=== PATIENT | female | born 1950 | race Two or more races ===

== ENCOUNTER → 2024-04-19 | Outpatient (CLI) | payer BC ==
[~2024-04-19] MED LIST: TRAM50TA2 PO
[2024-04-19 09:40] LABS: Urine Bacteria None Seen /hpf (None Seen)
[2024-04-19 09:51] LABS: Basophils # (auto) 0 10 ^3/uL (0-0.2); Basophils % (auto) 0.6 % (0.0-2.0); Eosinophils # (auto) 0.1 10 ^3/uL (0-0.8); Eosinophils % (auto) 1.1 % (0.0-7.0); Hematocrit 44.1 % (36.0-46.0); Hemoglobin 15.7 g/dL (12.2-16.2); Lymphocytes % (auto) 28.5 % (10.0-50.0); Mean Corpuscular Hemoglobin 32.4 pg (28.0-32.0); Mean Corpuscular Hgb Conc. 35.5 g/dL (32.0-36.0); Mean Corpuscular Volume 91.1 fL (80.0-100.0); Monocytes # (auto) 0.5 10 ^3/uL (0-1.3); Monocytes % (auto) 6.4 % (0.0-12.0); Neutrophils # (auto) 4.5 10 ^3/uL (1.6-8.6); Neutrophils % (auto) 63.4 % (37.0-80.0); Platelet Count (auto) 200 10^3/uL (140-450); Red Blood Cells 4.84 10^6/uL (4.0-5.20); Red Cell Distribution Width 13.2 % (11.8-14.3); White Blood Cell 7.1 10^3/uL (4.4-10.8)
[2024-04-19 09:56] LABS: Urine Blood Negative /uL (Negative); Urine Clarity Clear (Clear); Urine Color Light-Yellow (Yellow); Urine Protein, UAD Negative (Negative); Urine Specific Gravity 1.016 (1.001-1.035); Urine Urobilinogen Normal (Negative); Urine WBC 1 /hpf (0 - 5)
[2024-04-19 12:18] LABS: % Iron Saturation 44.9 % (15-50)
[2024-04-19 12:20] LABS: Alanine Aminotransferase 49 U/L (7-40); Albumin 4.2 g/dL (3.2-4.8); Alkaline Phosphatase 131 U/L (46-116); Anion Gap 5 (5-15); Aspartate Aminotransferase 35 U/L (13-40); BUN/Creatinine Ratio 7.7 (10.0-20.0); Bilirubin, Total 1.6 mg/dL (0.2-1.0); Blood Urea Nitrogen 7 mg/dL (9-23); Carbon Dioxide 30 mmol/L (20-31); Chloride 109 mmol/L (98-107); Cholesterol 165 mg/dL (< 200); Glucose 95 mg/dL (74-106); HDL Cholesterol 56 mg/dL (40-59); LDL Cholesterol 99 mg/dL (< 100); Potassium 3.8 mmol/L (3.5-5.1); Sodium 144 mmol/L (136-145); Total Protein 6.7 g/dL (5.7-8.2); Triglycerides 110 mg/dL (< 150)
[2024-04-19 12:24] LABS: Folate (Folic Acid) 12.99 ng/mL (>5.38)
[2024-04-19 12:56] LABS: Uric Acid 6.1 mg/dL (3.1-7.8)
== END | disposition home or self-care (01) ==
LOC: LAB 09:25
PROVIDERS: ATTEND Family Medicine
DX: I10 Essential (primary) hypertension (principal); E78.2 Mixed hyperlipidemia; Z00.00 Encounter for general adult medical examination without abnormal findings
CPT/HCPCS: 36415; 80053; 80061; 81001; 82306; 82607; 82746; 83036; 83540; 83550; 84403; 84443; 84550; 85025

== ENCOUNTER 2024-08-21 10:57 | Emergency (ER) | payer BC ==
[~2024-08-21] VITALS: Ht 162.6 cm; Wt 89.4 kg
--- NOTE | 2024-08-21 12:33 | ED.PDOC ---
History of Present Illness HPI Comments 74-year-old female that has a headache for 2 weeks. She supposedly had some form of a tumor in her brain but was referred to neuro any appointment has been canceled. She has been having issues getting into see the neurologist has to do with the referral she followed up with her primary care doctor who sent the referral was sent but it was never sent. Patient has no loss of vision no numbness no tingling. Patient states that she does have a headache it has been consistent for 2 weeks now she used to get very dizzy not as much. Denies any Falls. Chief Complaint: Headache Time Seen by MD: 12:30 Primary Care Provider: francisca Reviewed Notes: Nurses Notes, Medications, Allergies Allergies: Coded Allergies: NO KNOWN ALLERGIES (Unverified , 03/23/24) Home Meds Active Scripts Tramadol Hcl (Tramadol Hcl) 50 Mg Tab, 50 MG PO Q6HP PRN, #60 MG Prov:JOAQUIN CONNELL N.P. 08/01/13 Information Source: Patient Mode of Arrival: Ambulatory Past Medical History PAST MEDICAL HISTORY: Depression, HTN Past Medical History (Other): Pain to her Surgical History: Cholecystectomy, Hysterectomy, Tonsillectomy, Denies all surgeries [employer] History: No Pertinent [employer] History Social History Smoker: Non-Smoker Alcohol: Denies ETOH Use Drugs: Denies Drug Use Lives In: Home Neurological: reports: dizziness, headache All Other Systems: Reviewed and Negative Physical Exam General Appearance: No Apparent Distress HEENT: Normal ENT Inspection, PERRL/EOMI, Pharynx Normal, TMs Normal Neck: Non-Tender, Normal, Normal Inspection Respiratory: Lungs Clear Cardiovascular: Regular Rate/Rhythm Breast Exam: Deferred Gastrointestinal: Non Tender, Soft Genitalia: Deferred Pelvic: Deferred Rectal: Deferred Extremities: Normal inspection, Normal range of motion Neurologic: Alert, Headache, No Motor Deficits, Normal Mood, No Sensory Deficits Cerebellar Function: Normal Reflexes: NOT DONE Skin: Dry, Warm Lymphatic: No Adenopathy Was a procedure done? Was a procedure done?: No Differential Dx Considerations may include: Bleed versus migraine. X-Ray, Labs, Meds, VS Vital Signs Date Time Temp Pulse Resp B/P (MAP) Pulse Ox O2 Delivery O2 Flow Rate FiO2 08/21/24 11:15 97.7 91 19 152/89 (110) 97 X-Ray, Labs, Meds, VS Comment Patient seen examined by me. Patient has not been able to see the neurologist for some time secondary to cancellation of referrals. I will do a CT of her head as well as give her a pain shot once we get the imaging back.. Patient will be given a Toradol shot to help with pain. She needs to follow-up with the neurologist again further management and surveillance. Exception of the headache patient does not have any neurological symptoms at this time. Gait is Steady. CLINICAL INFORMATION: 74 years old, Female; headache. TECHNIQUE: Axial imaging was obtained through the brain without contrast. Coronal and sagittal reformatted images were obtained, reviewed, and stored. Images were reviewed in brain and bone windows. All CT scans at this medical facility are performed using dose modulation techniques as appropriate to a performed exam including the following: Automated exposure control was utilized; adjustment of the MA and/or KV according to patient size; and use of iterative reconstruction technique. CTDIvol = 60.28 mGy DLP = 1066.05 mGy-cm COMPARISON: None FINDINGS: There is no acute intracranial hemorrhage or extraaxial fluid collection. No midline shift. Focal calcification along the right side of the falx cerebri near the vertex measuring up to 0.9 cm in greatest dimension, abutting the right lateral aspect of the superior sagittal sinus. Scattered areas of hypoattenuation are seen in the periventricular and subcortical white matter, which are nonspecific but most likely sequelae of small vessel ischemic disease. The ventricles and sulci are within normal limits in size for age. Basal cisterns are patent. The calvarium is unremarkable. Paranasal sinuses and mastoid air cells are clear. IMPRESSION: 1. No CT evidence of acute intracranial abnormality. 2. Nonspecific calcification adjacent to the right side of the falx cerebri near the vertex. Differential considerations would include physiologic or dystrophic calcification. Calcified meningioma not excluded. Correlate with clinical findings. If clinically indicated, MRI without and with contrast could be o btained. ATED BY: MARSHALL HANNA DO DICTATED DATE/TIME: 08/21/24 1256 Time of 1ST Reevaluation: 13:11 Reevaluation 1ST: Improved Patient Education/Counseling: Diagnosis, Treatment, Prognosis, Need For Follow Up Family Education/Counseling: Diagnosis, Treatment, Prognosis, Need For Follow Up Departure 1 Departure Time of Disposition: 14:00 Impression: Primary Impression: Headache Disposition: HOME / SELF CARE / HOMELESS Condition: Good Additional Instructions: Please make a follow up appointment with the neurologist that your already seen and bring a copy of your CT scan with him Okay to take anti-inflammatories I will give you a prescription to take with for pain, do not take them until tomorrow e-Prescriptions Ibuprofen Micronized (Ibuprofen) 600 Mg Tab 600 MG PO Q6HPRN PRN for 5 Days, #20 TAB Prov: DEN CHATMAN 08/21/24 Discharged With: Self, Relative Critical Care Note Critical Care Time?: No Stability Stability form required: No DEN CHATMAN Aug 21, 2024 12:33
--- NOTE | 2024-08-21 12:59 | DVH ---
CLINICAL INFORMATION: 74 years old, Female; headache. TECHNIQUE: Axial imaging was obtained through the brain without contrast. Coronal and sagittal refor matted images were obtained, reviewed, and stored. Images were reviewed in brain and bone windows. A ll CT scans at this medical facility are performed using dose modulation techniques as appropriate to a performed exam including the following: Automated exposure control was utilized; adjustment of the MA and/or KV according to patient size; and use of iterative reconstruction technique. CTDIvol = 60.28 mGy DLP = 1066.05 mGy-cm COMPARISON: None FINDINGS: There is no acute intracranial hemorrhage or extraaxial fluid collection. No midline shif t. Focal calcification along the right side of the falx cerebri near the vertex measuring up to 0.9 c m in greatest dimension, abutting the right lateral aspect of the superior sagittal sinus. Scattered areas of hypoattenuation are seen in the periventricular and subcortical white matter, which are nons pecific but most likely sequelae of small vessel ischemic disease. The ventricles and sulci are withi n normal limits in size for age. Basal cisterns are patent. The calvarium is unremarkable. [place] sabrina sinuses and mastoid air cells are clear. IMPRESSION: 1. No CT evidence of acute intracranial abnormality. 2. Nonspecific calcification adjacent to the right side of the falx cerebri near the vertex. Differe ntial considerations would include physiologic or dystrophic calcification. Calcified meningioma not excluded. Correlate with clinical findings. If clinically indicated, MRI without and with contrast could be obtained.
[2024-08-21] MEDS ORDERED: IBUP1TAB5 PO (13:13)
[2024-08-21] MEDS: KETOROLAC TROMETH 30 MG/ML 1ML VIAL IM ONE (13:16)
[2024-08-21 13:20] VITALS: BP 152/89; PULSE 91; RESP 19; TEMP 97.9; O2SAT 97
== END 2024-08-21 13:23 | disposition home or self-care (01) ==
LOC: ER 11:00
DX: R51.9 Headache, unspecified (principal); I10 Essential (primary) hypertension; F32.A Depression, unspecified; Z90.49 Acquired absence of other specified parts of digestive tract; Z90.710 Acquired absence of both cervix and uterus; Z90.89 Acquired absence of other organs; Z98.890 Other specified postprocedural states
CPT/HCPCS: 70450; 96372; 99285; J1885

== ENCOUNTER → 2024-09-08 | Outpatient (CLI) | payer BC ==
[~2024-09-08] MED LIST changes: +IBUP1TAB5 PO
[2024-09-08 11:01] LABS: Basophils # (auto) 0 10 ^3/uL (0-0.2); Basophils % (auto) 0.4 % (0.0-2.0); Eosinophils # (auto) 0.1 10 ^3/uL (0-0.8); Eosinophils % (auto) 0.8 % (0.0-7.0); Hematocrit 40.9 % (36.0-46.0); Hemoglobin 14.6 g/dL (12.2-16.2); Lymphocytes # (auto) 2.4 10 ^3/uL (0.4-5.4); Lymphocytes % (auto) 32.7 % (10.0-50.0); Mean Corpuscular Hemoglobin 31.7 pg (28.0-32.0); Mean Corpuscular Hgb Conc. 35.6 g/dL (32.0-36.0); Monocytes # (auto) 0.4 10 ^3/uL (0-1.3); Monocytes % (auto) 5.7 % (0.0-12.0); Neutrophils # (auto) 4.5 10 ^3/uL (1.6-8.6); Neutrophils % (auto) 60.4 % (37.0-80.0); Platelet Count (auto) 189 10^3/uL (140-450); Red Cell Distribution Width 12.6 % (11.8-14.3); White Blood Cell 7.4 10^3/uL (4.4-10.8)
[2024-09-08 11:13] LABS: Urine Bacteria FEW /hpf (None Seen); Urine Blood Negative /uL (Negative); Urine Color Yellow (Yellow); Urine Protein, UAD Negative (Negative); Urine Specific Gravity 1.023 (1.001-1.035); Urine Squamous Epithelial Cell MOD /hpf (<5); Urine Urobilinogen Normal (Negative); Urine WBC 4 /HPF (0-5)
[2024-09-08 11:14] LABS: Urine Clarity Hazy (Clear)
[2024-09-08 11:29] LABS: Albumin 4.2 g/dL (3.2-4.8); Anion Gap 8 (5-15); BUN/Creatinine Ratio 11.4 (10.0-20.0); Blood Urea Nitrogen 10 mg/dL (9-23); Calcium 9.8 mg/dL (8.7-10.4); Carbon Dioxide 26 mmol/L (20-31); Free T3 3.2 pg/mL (2.3-4.2); Glucose 103 mg/dL (74-106); Potassium 3.9 mmol/L (3.5-5.1); Sodium 143 mmol/L (136-145); T3 Total 1.12 ng/mL (0.60-1.81); Triglycerides 117 mg/dL (< 150)
[2024-09-08 11:30] LABS: Cholesterol 174 mg/dL (< 200); Free T4 (Free Thyroxine) 1.1 ng/dL (0.89-1.76); HDL Cholesterol 49 mg/dL (40-59); Total Protein 6.5 g/dL (5.7-8.2)
[2024-09-08 11:36] LABS: Alanine Aminotransferase 56 U/L (7-40); Alkaline Phosphatase 116 U/L (46-116); Aspartate Aminotransferase 42 U/L (13-40); Bilirubin, Total 1.5 mg/dL (0.2-1.0); Chloride 109 mmol/L (98-107); LDL Cholesterol 113 mg/dL (< 100)
[2024-09-08 11:43] LABS: % Iron Saturation 48.1 % (15-50)
[2024-09-08 11:57] LABS: Uric Acid 6.2 mg/dL (3.1-7.8)
== END | disposition home or self-care (01) ==
LOC: LAB 10:07
PROVIDERS: ATTEND Family Medicine
DX: I10 Essential (primary) hypertension (principal); R42 Dizziness and giddiness; Z00.00 Encounter for general adult medical examination without abnormal findings; Z68.34 Body mass index [BMI] 34.0-34.9, adult
CPT/HCPCS: 36415; 80053; 80061; 81001; 82306; 82607; 83036; 83540; 83550; 84403; 84439; 84480; 84481; 84550; 85025; 87086

== ENCOUNTER 2025-03-09 09:47 | Outpatient (CLI) | payer BC ==
[2025-03-09 10:34] LABS: Hematocrit 44.0 % (36.0-46.0); Hemoglobin 15.2 g/dL (12.2-16.2); Mean Corpuscular Hemoglobin 31.1 pg (28.0-32.0); Mean Corpuscular Volume 90.4 fL (80.0-100.0); Nucleated Red Blood Cells % 0.0 %
[2025-03-09 10:37] LABS: Urine Protein, UAD Negative (Negative)
[2025-03-09 10:54] LABS: Alanine Aminotransferase 26 U/L (7-40); Albumin 4.1 g/dL (3.2-4.8); Alkaline Phosphatase 115 U/L (46-116); Anion Gap 7 (5-15); BUN/Creatinine Ratio 9.5 (10.0-20.0); Calcium 9.4 mg/dL (8.7-10.4); Carbon Dioxide 28 mmol/L (20-31); Glucose 95 mg/dL (74-106); Magnesium 1.7 mg/dL (1.6-2.6); Potassium 4.3 mmol/L (3.5-5.1); Sodium 143 mmol/L (136-145); Total Protein 6.4 g/dL (5.7-8.2); Triglycerides 112 mg/dL (< 150)
[2025-03-09 10:55] LABS: Bilirubin, Total 1.1 mg/dL (0.2-1.0); Cholesterol 169 mg/dL (< 200); HDL Cholesterol 49 mg/dL (40-59)
[2025-03-09 10:59] LABS: Blood Urea Nitrogen 9 mg/dL (9-23); Chloride 108 mmol/L (98-107); Free T3 3.36 pg/mL (2.3-4.2); Free T4 (Free Thyroxine) 1.04 ng/dL (0.89-1.76)
[2025-03-09 11:11] LABS: Uric Acid 6.2 mg/dL (3.1-7.8)
[2025-03-09 11:17] LABS: Iron 76.0 ug/dL (50-170)
[2025-03-09 11:26] LABS: Total Iron Binding Capacity 277.0 ug/dL (250-425)
== END 2025-03-09 17:00 | disposition home or self-care (01) ==
LOC: LAB 09:47
PROVIDERS: ATTEND Family Medicine
DX: D32.9 Benign neoplasm of meninges, unspecified (principal); E78.2 Mixed hyperlipidemia; E55.9 Vitamin D deficiency, unspecified; Z68.33 Body mass index [BMI] 33.0-33.9, adult; Z79.899 Other long term (current) drug therapy
CPT/HCPCS: 36415; 80053; 80061; 80198; 81001; 82306; 82607; 83036; 83540; 83550; 83735; 84403; 84439; 84443; 84480; 84481; 84550; 85025; 87086